=== PATIENT | male | born 1955 | race Caucasian/White ===

== ENCOUNTER 2020-07-29 05:24 | Day surgery (SDC) | payer BC, MEDICARE ==
[2020-07-25 11:50] LABS: HEMOGLOBIN 14.4 g/dL (13.5-17.0); MEAN CORPUSCULAR HEMOGLOBIN 34.3 pg (27.0-33.4); MEAN CORPUSCULAR VOLUME 95 fl (80-97); PLATELET COUNT 217 10^3/uL (150-450); RED BLOOD COUNT 4.19 10^6/uL (4.35-5.55); RED CELL DISTRIBUTION WIDTH 12.7 % (11.5-14.0); WHITE BLOOD COUNT 4.3 10^3/uL (4.0-10.5)
[2020-07-25 12:13] LABS: ANION GAP 10 (5-19); BLOOD UREA NITROGEN 19 mg/dL (7-20); CARBON DIOXIDE 27 mmol/L (22-30); CHLORIDE 100 mmol/L (98-107); GLUCOSE 101 mg/dL (75-110); POTASSIUM 3.9 mmol/L (3.6-5.0)
[~2020-07-29 05:24] MED LIST: CEFAZOLIN 1 GM/D5W RTU 1 GM/50 ML RTUPB IV ONE; CEFAZOLIN 1 GM/D5W RTU 1 GM/50 ML RTUPB IV PRN; LACTATED RINGERS 1000 ML IV PRN; LIDOCAINE 0.5% INJ-PF (5 MG/ML) 50 ML SDV SUBCUT PRN
[2020-07-29] MEDS ORDERED: LIDOCAINE 1%/EPINEPHRINE INJ 20 ML VIAL ONE (07:07)
[2020-07-29] MEDS ORDERED: FENTANYL CITRATE INJ/PF 100 MCG/2 ML AMPUL ONE (07:20)
[2020-07-29] MEDS ORDERED: DEXMEDETOMIDINE INJ 80 MCG/20 ML VIAL IV ONE (07:20)
[2020-07-29] MEDS ORDERED: MIDAZOLAM 2 MG/2 ML INJ ONE (07:20)
[2020-07-29] MEDS ORDERED: PROPOFOL INJ 200 MG/20 ML VIAL IV ONE (07:21)
[2020-07-29] MEDS ORDERED: DIPHENHYDRAMINE HCL 50 MG/ML VIAL IV PRN (07:39)
[2020-07-29] MEDS ORDERED: PROMETHAZINE HCL INJ 25 MG/1 ML VIAL IV PRN ×2 (07:39)
[2020-07-29] MEDS ORDERED: MORPHINE SULFATE 10 MG/ML INJ IV PRN (07:39)
[2020-07-29] MEDS ORDERED: FENTANYL CITRATE INJ/PF 100 MCG/2 ML AMPUL IV PRN (07:39)
[2020-07-29] MEDS ORDERED: MEPERIDINE HCL/PF INJ 25 MG/1 ML DISP.SYRIN IV PRN (07:39)
--- NOTE | 2020-07-29 08:20 | Discharge Summary ---
Discharge Summary (SDC) - Discharge Final Diagnosis: Sebaceous cyst of the back x2 Date of Surgery: 07/29/20 Discharge Date: 07/29/20 Condition: Good Treatment or Instructions: Advance diet as tolerated; prescription called in digitally; follow-up with Dr. Hernandez at [facility] in 1 week; provide dressings for daily changes as needed, patient may shower Referrals: REI LAIRD PA-C [Primary Care Provider] - Discharge Diet: As Tolerated Discharge Activity: Activity As Tolerated Home Care Assistance: None Needed Report the Following to Your Physician Immediately: Shortness of Breath, Increase in Pain, Fever over 101 Degrees, Unusual Bleeding
--- NOTE | 2020-07-29 08:25 | Operative Report ---
Operative Report DATE OF SURGERY: 07/29/20 PREOPERATIVE DIAGNOSIS: 1. Chronic sebaceous cysts x2. 2. Overweight POSTOPERATIVE DIAGNOSIS: Same OPERATION: Excisional debridement of sebaceous cyst of the back x2, with closure of wounds over drains SURGEON: POLA GONZALES ANESTHESIA: LMAC TISSUE REMOVED OR ALTERED: Skin, subcutaneous tissue and fascial fragments all disposed of COMPLICATIONS: None ESTIMATED BLOOD LOSS: 20 cc INTRAOPERATIVE FINDINGS: See below PROCEDURE: Patient was seen in the preop holding area where the back was marked to the left of midline, over the scapula identifying a 2 sebaceous cysts the medialmost intact, the lateral-most draining. The patient was taken to the main operating room, had LMAC anesthesia induced, placed in the right side down left side up position. Left upper back was prepped and draped sterile fashion with Betadine Surgical plan and surgical timeout were conducted. Both large, erythematous distended sebaceous cyst were anesthetized with 1% plain lidocaine. We approached the lateral most cyst first. An ellipse of skin was excised, intact with the underlying abscess, including surrounding scar tissue and fibrotic reaction. This created a hole approximately 6 cm in diameter beneath the 4 to 5cm elliptical incision which was oriented transversely. 95% of all fibrotic tissue excised with knife blade. The second cyst, closer to the midline, was excised in a similar fashion, with a transversely oriented 4-1/2cm ellipse of skin oriented horizontally. The underlying cyst contents were excised in their entirety with 100% removal of all affected tissue. All skin and subcutaneous tissue, fibrotic tissue, and portions of fascia from the lateralmost cyst excision site were disposed of. Hemostasis was controlled with electrocautery. Wounds were closed transversely with multiple 3-0 interrupted vertically oriented Ethilon sutures, with the placement of quarter inch [place] drains sewed into position in both cavities. 4 x 4's and honeycomb dressings applied. Patient tolerated procedure well. He was taken to recovery room in stable condition.
[2020-07-29 09:57] VITALS: BP 100/53
[2020-07-29] MEDS ORDERED: LIDOCAINE 2% INJ-PF (20 MG/ML) 2 ML AMPUL ONE (14:10)
== END 2020-07-29 09:55 | disposition home or self-care (01) ==
LOC: OROUT 05:24
PROVIDERS: ATTEND Surgery
DX: L72.3 Sebaceous cyst (principal); E66.3 Overweight; Z03.818 Encounter for observation for suspected exposure to other biological agents ruled out; Z86.79 Personal history of other diseases of the circulatory system
CPT/HCPCS: 36415; 85027; 80048; 00300; 11043; U0003; J2250; J0690; J3010; J3490 ×3; J2704; C9803; 300; 87635